=== PATIENT | male | born 1995 | race Caucasian/White ===

== ENCOUNTER → 2018-08-11 08:48 | Outpatient (CLI) | payer OTHER, MEDICAID, SELFPAY ==
[2018-08-11 11:01] LABS: Rubella Antibody IgG 21.1 IU/mL (>15)
== END ==
PROVIDERS: PCP Physician Assistant; Visit Provider Physician Assistant
DX: Z20.9 Contact with and (suspected) exposure to unspecified communicable disease (principal)
CPT/HCPCS: 36415; 86735; 86762; 86765

== ENCOUNTER 2024-03-15 08:11 | Day surgery (SDC) | payer OTHER, MEDICAID, SELFPAY ==
[2024-03-15 08:44] VITALS: BP 181/106; PULSE 89; RESP 16; TEMP 36.9; O2SAT 97; BMI 30.5
--- NOTE | 2024-03-15 08:47 | DI.RAD.S_ITS ---
PROCEDURE: XR ABDOMEN MIN 2V INDICATIONS: Foreign body TECHNIQUE: 2 views of the abdomen were acquired. COMPARISON: None. Findings and impression: 8.6 x 2.3 cm plastic and metallic object projects over the rectum Overall moderate fecal loading. Otherwise nonobstructive bowel gas pattern. No suspicious calcifications. Dictated by: Juancarlos Rich M.D. on 03/15/2024 at 9:28 Approved by: Juancarlos Rich M.D. on 03/15/2024 at 9:31
--- NOTE | 2024-03-15 09:29 | ED_ITS ---
HPI - Skin/Abscess/Foreign Bdy General Chief complaint: Skin/Abscess/Foreign Body Stated complaint: thinks has bowel obstruction Time Seen by Provider: 03/15/24 08:47 Source: patient Mode of arrival: Family Vehicle Limitations: no limitations History of Present Illness HPI narrative: Patient is a 28-year-old male presenting today with rectal foreign body. Reports consensual intercourse last night vibrator was placed up rectum. He has been unable to get it out. No nausea or vomiting he has been trying to get it out all night. He did have pizza and copy this morning at 5:00 a.m.. Related Data Previous Rx's Medication Instructions Recorded sertraline 50 mg tablet 50 mg PO DAILY #30 tabs 05/04/19 Allergies Allergy/AdvReac Type Severity Reaction Status Date / Time No Known Drug Allergies Allergy Verified 05/04/19 11:55 Patient History Medical History Depression Chicken pox Knee pain Hemorrhoids Depression Surgical History No history of previous surgery Family History Father Hypertension Mental health problem Mother Mental health problem Arthritis Sister Mental health problem Social History Smoking Status: Former smoker Tobacco: How many years used: 3 second hand exposure: No alcohol intake: current (wine or whiskey once every 2 weeks roughly.) substance use type: does not use Smoking Status: Former smoker alcohol intake frequency: 0-2 drinks per day Substance Use Type: does not use Exam Initial Vital Signs Initial Vital Signs: Vital Signs Temperature 98.5 F 03/15/24 08:44 Pulse Rate 89 03/15/24 08:44 Respiratory Rate 16 03/15/24 08:44 Blood Pressure 181/106 H 03/15/24 08:44 Pulse Oximetry 97 03/15/24 08:44 Oxygen Delivery Method Room Air 03/15/24 08:44 GENERAL: Well-appearing, well-nourished and in no acute distress. CARDIOVASCULAR: peripheral pulses in tact, cap refill <2 sec RESPIRATORY: No respiratory distress, speaks in full sentences without difficulty ABDOMEN: Soft, nontender, no guarding or rebound RCTAL: External hemorrhoid noted patient bear down no foreign body seen or felt EXTREMITIES: Normal range of motion, no clubbing or edema. Neurovascularly intact NEUROLOGICAL: Cranial nerves II through XII grossly intact. Normal gait and speech. SKIN: Warm, dry, no petechiae, no rashes or lesions. Course Orders Ordered: Discontinued Medications Famotidine (Famotidine 20 Mg/2 Ml Vial) 20 mg IV NOW DEIRDRE Last Admin: 03/15/24 10:10 Dose: 20 mg Documented By: YOHANNES Fentanyl (Fentanyl 100 Mcg/2 Ml Inj) 0 mcg IV Q5MIN PRN PRN Reason: Pain, Severe (7-10) Fentanyl (Fentanyl 100 Mcg/2 Ml Inj) 0 mcg IV Q5M PRN PRN Reason: Pain, Moderate (4-6) Fentanyl (Fentanyl 100 Mcg/2 Ml Inj) 0 mcg IV Q5M PRN PRN Reason: Pain, Severe (7-10) Hydromorphone HCl (Hydromorphone 1 Mg Inj) 0 mg IV Q5MIN PRN PRN Reason: Pain, Mild (1-3) Hydromorphone HCl (Hydromorphone 1 Mg Inj) 0 mg IV Q5MIN PRN PRN Reason: Pain, Moderate (4-6) Hydromorphone HCl (Hydromorphone 1 Mg Inj) 0 mg IV Q5MIN PRN PRN Reason: Pain, Severe (7-10) Lactated Ringer's (Lactated Ringers) 1,000 mls @ 1,000 mls/hr IV BOLUS ONE Stop: 03/15/24 11:02 Last Infusion: 03/15/24 11:01 Dose: Infused Documented By: Admin: 03/15/24 10:15 Dose: 1,000 mls/hr Documented By: YOHANNES Metoclopramide HCl (Metoclopramide 10 Mg/2 Ml Inj) 10 mg IV NOW ONE Stop: 03/15/24 10:04 Last Admin: 03/15/24 10:10 Dose: 10 mg Documented By: YOHANNES Ondansetron HCl (Ondansetron 4 Mg/2 Ml Inj) 4 mg IV NOW ONE Stop: 03/15/24 10:04 Last Admin: 03/15/24 10:10 Dose: 4 mg Documented By: YOHANNES Ondansetron HCl (Ondansetron 4 Mg/2 Ml Inj) 4 mg IV NOW PRN PRN Reason: Nausea And Vomiting Oxycodone/Acetaminophen (Oxycodone/Acetaminophen 5/325 Tablet) 1 tab PO PACUNOW PRN PRN Reason: Mild or Moderate Pain Vital Signs Vital signs: Vital Signs - 8 hr 03/15/24 08:44 Temperature 98.5 F Pulse Rate 89 Respiratory Rate 16 Blood Pressure 181/106 H Pulse Oximetry 97 Oxygen Delivery Method Room Air MDM - Skin/Abscess/Foreign Bdy Imaging Data Abdominal x-ray: Radiologist's Impression: PROCEDURE: XR ABDOMEN MIN 2V INDICATIONS: Foreign body TECHNIQUE: 2 views of the abdomen were acquired. COMPARISON: None. Findings and impression: 8.6 x 2.3 cm plastic and metallic object projects over the rectum Overall moderate fecal loading. Otherwise nonobstructive bowel gas pattern. No suspicious calcifications. Dictated by: Juancarlos Rich M.D. on 03/15/2024 at 9:28 MDM Narrative Medical decision making narrative: Patient 28-year-old male presents today with rectal foreign body confirmed by x- ray. Abdomen is soft nontender patient has otherwise toxic in healthy 0930-Dr. Hebert surgery on-call made aware, in ED to see and evaluate patient patient goes to OR Discharge Plan Departure Patient Disposition: Admitted as Observation Clinical Impression: Foreign body of anus or rectum Admit Date/Time: 03/15/24 09:54 Admit Provider: Faye Hebert
--- NOTE | 2024-03-15 09:53 | PM.HP.1 ---
History of Present Illness History of Present Illness Date Patient Seen: 03/15/24 Time Patient Seen: 09:53 Chief complaint: thinks has bowel obstruction Narrative: Rectal foreign body and associated perianal trauma trying to retrieve it. NO bowel obstructive symptoms. Occurred last evening, consensual. [facility] Medical History Depression Chicken pox Knee pain Hemorrhoids Depression Surgical History No history of previous surgery Family History Father Hypertension Mental health problem Mother Mental health problem Arthritis Sister Mental health problem Social History Smoking Status: Former smoker Tobacco: How many years used: 3 second hand exposure: No alcohol intake: current (wine or whiskey once every 2 weeks roughly.) substance use type: does not use Meds Home Medications and Allergies Home Medications Medication Instructions Recorded Confirmed Type sertraline 50 mg tablet 50 mg PO DAILY #30 tabs 05/04/19 05/04/19 Rx Allergies Allergy/AdvReac Type Severity Reaction Status Date / Time No Known Drug Allergies Allergy Verified 05/04/19 11:55 Review of Systems Review of Systems ROS: Yes All systems reviewed with the patient and are negative except as otherwise documented Exam Vital Signs (past 8 hours): - 03/15/24 08:44 Temperature 98.5 F Pulse Rate 89 Respiratory Rate 16 Blood Pressure 181/106 H Pulse Oximetry 97 Oxygen Delivery Method Room Air Oxygen Delivery Method Room Air Const General: cooperative, healthy appearing and comfortable Nutritional Appearance: average body habitus [facility] Head: normocephalic and atraumatic Ears: hearing grossly normal bilaterally Eyes Periorbital: periorbital findings normal Sclera: sclerae normal Neck Neck: trachea midline Chest Chest: normal inspection of the chest Resp Effort & Inspection: normal respiratory effort and able to speak in complete sentences Cardio Rate: tachycardic Rhythm: regular rhythm GI Inspection: normal to inspection Palpation: soft and No tender Skin General: turgor normal and No atrophy Neuro General: patient alert, patient awake and patient oriented x3 Cognition: normal cognition Psych Appearance: grossly normal Mental Status: mental status grossly normal Judgment: judgment good Assessment & Plan Assessment & Plan narrative: Rectal foreign body Rectal foreign body removal with anesthesia Time-Based Coding :: [TOTAL MINUTES] spent with patient and on the chart (including review of chart, obtaining history, exam, reviewing outside data, placing orders, documenting exam and treatment plan, and counseling patient) on [DATE].
--- NOTE | 2024-03-15 10:00 | PC.NURSE ---
Anesthesia here at BS -- JOSE Steel for anesthesia assessment/eval, Verbal orders given for LR 1L, Metoclopromide, Ondansetron, Famotidine meds now for Pre-op. Patient diaphoretic and dizzy after PIV placement, relieved by resting in bed. See MAR/Orders for documentation of above verbal orders. Girlfriend at bedside during anesthesia assessment.
[2024-03-15 10:05] VITALS: BP 140/62; PULSE 87; RESP 16; O2SAT 99
[2024-03-15] MEDS: ONDANSETRON 4 MG/2 ML INJ IV (10:10)
[2024-03-15] MEDS: FAMOTIDINE 20 MG/2 ML VIAL IV (10:10)
[2024-03-15] MEDS: METOCLOPRAMIDE 10 MG/2 ML INJ IV (10:10)
[2024-03-15] MEDS: LACTATED RINGERS 1,000 ML 1000 ML IV (10:15)
--- NOTE | 2024-03-15 10:47 | PM.OP.1 ---
Operative Date/Time/Diagnoses Date of procedure: 03/15/24 Time of procedure: 10:47 Pre-op diagnosis: Rectal foreign body Post-op diagnosis: same Procedure & Clinicians Procedure: Removal rectal foreign body under anesthesia Same procedure as scheduled: Yes Indications: Rectal foreign body Surgeon: Faye Hebert Click Yes if Unassisted: Yes Anesthesia Type: General Operative Notes Findings: Vibrator intact Closure Type: not applicable Specimen(s): none sent Estimated Blood Loss (mL): 2 Blood products transfused: none Procedure in detail: Preop diagnosis: Rectal foreign body Postop diagnosis: Same Operative procedure: Removal of rectal foreign body under anesthesia Surgeon: Gladys Hebert MD Findings: Purple vibrator proximally the size of a standard tampon. Fully intact. Edema in the perianal area from trauma of attempted removal Procedure: Patient placed in a lithotomy position. No prep was done. The capsule was difficult to grasp so I used a sponge stick grasper to remove the intact vibrator from his rectum. Small amount of bleeding from the hemorrhoids. Specimen: None Blood loss: 2 mL Complications: none Post-operative Condition: stable Disposition: PACU
[2024-03-15 10:55] VITALS: BP 156/97; PULSE 102; RESP 12; TEMP 36.3; O2SAT 98
--- NOTE | 2024-03-15 10:57 | SUR.OPER ---
Supine on padded OR bed, head on pillow, arms secured on padded arm boards at <90 degrees abduction, legs uncrossed, safety belt at thigh, tape over blanket over lower legs.
[2024-03-15 11:00] VITALS: BP 154/110; PULSE 100; RESP 18; O2SAT 97
[2024-03-15 11:06] VITALS: BP 148/96; PULSE 95; RESP 14; TEMP 36.3; O2SAT 97
[2024-03-15 11:13] VITALS: BP 144/96; PULSE 96; RESP 16; O2SAT 99
== END 2024-03-15 11:21 | disposition home or self-care (01) ==
LOC: ED 08:47 → AC 09:56 → OR 03-16 07:02
PROVIDERS: Emergency Provider Emergency Medicine; PCP Physician Assistant; Referring Provider Emergency Medicine; Visit Provider Surgery
PROC: (CPT 45990; principal; 2024-03-15 10:30)
DX: T18.5XXA Foreign body in anus and rectum, initial encounter (principal)
CPT/HCPCS: 46999; 74019; 96374; 96375; 99283; 99284; G0378; J0330; J1100; J1885; J2250; J2405; J2704; J2765; J3010